=== PATIENT | female | born 1960 | race Caucasian/White ===

== ENCOUNTER 2024-08-04 23:21 | Emergency (ER) | payer OTHER, SELFPAY ==
[2024-08-04 23:36] VITALS: BP 137/93
--- NOTE | 2024-08-05 00:32 | ED.GENMED ---
History of Present Illness
General
Chief Complaint: Musculo-Skeletal Complaint
Time Seen by Provider: 08/05/24 00:20
History of Present Illness
History of Present Illness:
64-year-old female presents the emergency department for evaluation of right wrist and forearm pain for the past 6 days after having electric door crushed the extremity. She has intermittent sharp pains that seem to be random and unprovoked. No
distal paresthesias
Past History
Past History
ED Past Medical History: None
ED Past Surgical History: Orthopedic and Tonsilectomy
Social History
Tobacco: Non-smoker
Alcohol: None
Drug: None
Personal:
Living: with family
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
Review of Systems
Review of Systems
Allergies reviewed?: Yes
All Other Systems: ROS reviewed and negative except as documented in HPI and ROS
Phy Exam
Physical Exam
Physical Exam:
GEN: Well appearing, NAD, WDWN
HEENT: Oral mucosa moist, no scleral icterus
Cardiac: Regular rate
Lung: No respiratory distress, no tachypnea
MSK: Minor ecchymosis to the right lateral hand as well as to the right midshaft ulnar forearm, no gross deformity, right wrist range of motion normal in all herr, negative Rosendo test
Skin: Good color, no pallor or jaundice, no rashes
Neuro: AO x3, moves all extremities freely
Psych: Calm, cooperative
Course
Orders/Labs/Results
Orders:
Orders
08/04/24 23:42
Wrist, Right 3 Views [CR Wrist - Right Min 3 Views] Urgent
Comment:
Reason For Exam: electric door closed on her wrist
Vital Signs
Initial and Last Documented VS:
Initial Vital Signs
Temp Pulse Resp BP Pulse Ox
98.3 F 99 16 137/93 98
08/04/24 23:36 08/04/24 23:36 08/04/24 23:36 08/04/24 23:36 08/04/24 23:36
Last Documented Vital Signs
Temp Pulse Resp BP Pulse Ox
98.3 F 99 16 137/93 98
08/04/24 23:36 08/04/24 23:36 08/04/24 23:36 08/04/24 23:36 08/04/24 23:36
MDM/Problems Addressed
MDM/Problems Addressed:
X-rays independently interpreted by me are unremarkable for acute fracture, likely soft tissue injury, discussed supportive care
*Critical Care Note
Total Time (30-74mins, 75-104mins- exclusive of procedures): Not Applicable
ED Attending Note
-
Portions of this chart may have been created with voice recognition software.� Occasional wrong word or��sound alike� substitutions may have occurred due to the inherent limitations of voice recognition software.
Discharge Plan
Departure
Patient Disposition: Home (Routine Discharge)
Date of Disposition: 08/05/24
Time of Disposition: 00:32
Patient with high blood pressure during this ER visit?: No
Discharge Problem:
Contusion of right wrist
Instructions: Sprain (DC)
Prescriptions:
No Action
cyclobenzaprine 10 MG tablet
10 mg PO BIDPRN PRN (Reason: chest wall pain) Qty: 20 0RF
Referrals:
Tabatha Garcia MD [Family Provider] -
Activity Restrictions/Additional Instructions:
Try topical anti inflammatory creams such as Voltaren
Interventions
Interventions:
*Risk Screen - Suicide Last Done: 08/04/24 23:36
*Nursing Disposition Last Done: 08/05/24 00:30
Discharge Date and Time
Discharge Date/Time: 08/05/24 00:30
Print Language: GERMAN
== END 2024-08-05 00:30 | disposition home or self-care (01) ==
LOC: EMR 23:21
PROVIDERS: EMERGENCY PHYSICIAN Student in an Organized Health Care Education/Training Program; FAMILY PHYSICIAN Family Medicine
DX: S60.211A Contusion of right wrist, initial encounter (principal); W23.0XXA Caught, crushed, jammed, or pinched between moving objects, initial encounter
CPT/HCPCS: 99283; 73110